=== PATIENT | male | born 1935 | race African-American/Black ===

== ENCOUNTER 2016-06-08 11:39 | Inpatient (IN) | payer MEDICARE, OTHER ==
[~2016-06-08] VITALS: Ht 185.4 cm; Wt 65.0 kg
[~2016-06-08 11:39] MED LIST: ACET325 PO; ACIDCAP2 PO; AUGM875T PO; BISA10R PR; BRIM.2%O LEFT EYE; CIPR500T4 PO; FLEEENE3 PR; FURO1TAB93 PO; LATA.005%O LEFT EYE; LISI-363 PO; MILKSUS5 PO; MIRA33502 PO; POTA10TA2 PO; RIVA20 PO; SENN8.6T8 PO; ST J81CH PO; Z.0.OXYGEN INH
[2016-06-08 11:43] VITALS: BP 110/73; PULSE 72; RESP 24; TEMP 97.5; O2SAT 98
[2016-06-08 11:56] VITALS: BP 132/83; PULSE 80; RESP 16; TEMP 98.1; O2SAT 92
[2016-06-08] MEDS ORDERED: XARE20TA PO (12:05)
[2016-06-08] MEDS ORDERED: FURO40TA PO (12:05)
[2016-06-08] MEDS ORDERED: SENN1TAB PO (12:05)
[2016-06-08] MEDS ORDERED: CIPR500T2 PO (12:05)
[2016-06-08] MEDS ORDERED: QUET1TAB7 PO (12:05)
[2016-06-08] MEDS ORDERED: SODIUM CHLOR 0.9% 1000 ML INJ 1,000 ML IV SCH (12:06)
[2016-06-08] MEDS ORDERED: SODIUM CHLORIDE 0.9% FLUSH 5 ML FLUSH IVF PRN (12:15)
[2016-06-08] MEDS ORDERED: ONDANSETRON HCL 4 MG/2 ML VIAL IVP ONE (12:15)
[2016-06-08 12:21] VITALS: O2SAT 92
--- NOTE | 2016-06-08 12:22 | PD ---
HPI Chief Complaint: GI Complaint Time Seen by Provider: 12:00 Travel History International Travel<30 days: No Contact w/Intl Traveler<30days: No Traveled to known affect area: No History of Present Illness HPI Patient is a 80-year-old male who presents to emergency room with complaints of abdominal pain. Patient reports that he has not had a normal bowel movement in a few weeks, reports that his abdomen has become increasingly distended to the point where he is having a hard time eating. Reports that he has had decreased oral intake over the past couple days as his abdomen is distended and it is very difficult for him to eat. Patient denies nausea or vomiting. Patient denies abdominal pain. Patient with no history of abdominal surgeries in the past, no history of small bowel distractions in the past. Patient did have an outpatient xray of his abdomen which showed possible SBO. Patient here for further evaluation. PFSH Past Medical History Hx Anticoagulant Therapy: Yes (XARELTO ) Arthritis: Yes (KNEE) Asthma: Yes Blood Disorders: No Cancer: No Cardiovascular Problems: No Diminished Hearing: No Endocrine: No Gastrointestinal Disorders: No Glaucoma: Yes Genitourinary: Yes (JEFFERY CATHETER ON PLACE FROM [facility] ) Hypertension: Yes Immune Disorder: No Neurologic: No Psychiatric: No Reproductive: No Immunizations Current: Yes Influenza Vaccination: No Past Surgical History Surgical History: No Previous Surgery Pacemaker: No Other Surgery: No Family History Family History: Negative Social History Alcohol Use: No Tobacco Use: No Substance Use: No Allergies-Medications (Allergen,Severity, Reaction): Coded Allergies: Sulfa (Verified Allergy, Mild, Rash, 06/08/16) Reported Meds & Prescriptions Reported Meds & Active Scripts Active Reported Furosemide 40 Mg Tab 40 Mg PO DAILY Quetiapine (Quetiapine Fumarate) 25 Mg Tab 25 Mg PO DAILY Ciprofloxacin (Ciprofloxacin HCl) 500 Mg Tab 500 Mg PO BID Senna-Plus (Sennosides-Docusate Sodium) 8.6-50 Mg Tab 1 Tab PO DAILY Xarelto (Rivaroxaban) 20 Mg Tab 20 Mg PO DAILY Review of Systems General / Constitutional: No: Fever Eyes: No: Visual changes HENT: No: Headaches Cardiovascular: No: Chest Pain or Discomfort Respiratory: No: Shortness of Breath Gastrointestinal: Positive: Other (abdominal distention), No: Nausea, Vomiting , Abdominal Pain Genitourinary: No: Dysuria Musculoskeletal: No: Pain Skin: No Rash Neurologic: No: Weakness Psychiatric: No: Depression Endocrine: No: Polydipsia Hematologic/Lymphatic: No: Easy Bruising Physical Exam Narrative GENERAL: No acute distress, SKIN: Warm and dry. HEAD: Atraumatic. Normocephalic. EYES: Pupils equal and round. No scleral icterus. No injection or drainage. ENT: No nasal bleeding or discharge. Mucous membranes pink and moist. NECK: Trachea midline. No JVD. CARDIOVASCULAR: Regular rate and rhythm. No murmur appreciated. RESPIRATORY: No accessory muscle use. Clear to auscultation. Breath sounds equal bilaterally. GASTROINTESTINAL: Abdomen is distended, nontender, positive bowel sounds which are hyperactive MUSCULOSKELETAL: No obvious deformities. No clubbing. No cyanosis. No edema. NEUROLOGICAL: Awake and alert. No obvious cranial nerve deficits. Motor grossly within normal limits. Normal speech. PSYCHIATRIC: Appropriate mood and affect; insight and judgment normal. Data Data Last Documented VS Vital Signs Date Time Temp Pulse Resp B/P Pulse Ox O2 Delivery O2 Flow Rate FiO2 06/08/16 14:26 81 16 149/81 95 Nasal Cannula 2 06/08/16 11:56 98.1 Orders Complete Blood Count With Diff (06/08/16 12:06) Comprehensive Metabolic Panel (06/08/16 12:06) Prothrombin Time / Inr (Pt) (06/08/16 12:06) Act Partial Throm Time (Ptt) (06/08/16 12:06) Urinalysis - C+S If Indicated (06/08/16 12:06) Ct Abd/Pel W Iv Contrast(Rout) (06/08/16 12:06) Iv Access Insert/Monitor (06/08/16 12:06) Ecg Monitoring (06/08/16 12:06) Oximetry (06/08/16 12:06) Ondansetron Inj (Zofran Inj) (06/08/16 12:15) Sodium Chlor 0.9% 1000 Ml Inj (Ns 1000 M (06/08/16 12:06) Sodium Chloride 0.9% Flush (Ns Flush) (06/08/16 12:15) Chest, Single Ap (06/08/16 12:06) Oral Contrast - Adult (06/08/16 12:11) Diatrizoate Liq ( Gastroview Liq) (06/08/16 12:24) Urine Culture (06/08/16 13:12) Iohexol 350 Inj (Omnipaque 350 Inj) (06/08/16 14:11) Ceftriaxone Inj (Rocephin Inj) (06/08/16 15:45) Consult General Surgery (06/08/16 ) Consult Gastroenterology (06/08/16 ) Admit Order (Ed Use Only) (06/08/16 16:08) Labs Laboratory Tests Test 06/08/16 06/08/16 12:51 13:12 White Blood Count 14.7 TH/MM3 Red Blood Count 3.95 MIL/MM3 Hemoglobin 12.0 GM/DL Hematocrit 35.6 % Mean Corpuscular Volume 90.0 FL Mean Corpuscular Hemoglobin 30.4 PG Mean Corpuscular Hemoglobin 33.8 % Concent Red Cell Distribution Width 14.1 % Platelet Count 217 TH/MM3 Mean Platelet Volume 8.6 FL Neutrophils (%) (Auto) 82.9 % Lymphocytes (%) (Auto) 8.4 % Monocytes (%) (Auto) 8.1 % Eosinophils (%) (Auto) 0.3 % Basophils (%) (Auto) 0.3 % Neutrophils # (Auto) 12.2 TH/MM3 Lymphocytes # (Auto) 1.2 TH/MM3 Monocytes # (Auto) 1.2 TH/MM3 Eosinophils # (Auto) 0.0 TH/MM3 Basophils # (Auto) 0.0 TH/MM3 CBC Comment DIFF FINAL Differential Comment Prothrombin Time 13.6 SEC Prothromb Time International 1.2 RATIO Ratio Activated Partial 34.1 SEC Thromboplast Time Sodium Level 145 MEQ/L Potassium Level 2.6 MEQ/L Chloride Level 108 MEQ/L Carbon Dioxide Level 28.0 MEQ/L Anion Gap 9 MEQ/L Blood Urea Nitrogen 28 MG/DL Creatinine 1.22 MG/DL Estimat Glomerular Filtration 70 ML/MIN Rate Random Glucose 107 MG/DL Calcium Level 9.1 MG/DL Total Bilirubin 1.2 MG/DL Aspartate Amino Transf 19 U/L (AST/SGOT) Alanine Aminotransferase 17 U/L (ALT/SGPT) Alkaline Phosphatase 68 U/L Total Protein 7.1 GM/DL Albumin 3.1 GM/DL Urine Color YELLOW Urine Turbidity HAZY Urine pH 5.5 Urine Specific [place] 1.015 Urine Protein 30 mg/dL Urine Glucose (UA) NEG mg/dL Urine Ketones NEG mg/dL Urine Occult Blood SMALL Urine Nitrite NEG Urine Bilirubin NEG Urine Urobilinogen LESS THAN 2.0 MG/DL Urine Leukocyte Esterase LARGE Urine RBC 4 /hpf Urine WBC 87 /hpf Urine WBC Clumps RARE Urine Squamous Epithelial <1 /hpf Cells Urine Bacteria MOD /hpf Urine Hyaline Casts 60 /lpf Urine Mucus FEW /lpf Microscopic Urinalysis Comment CULTURE INDICATED MDM Medical Decision Making Medical Screen Exam Complete: Yes Emergency Medical Condition: Yes Interpretation(s) Vital Signs Date Time Temp Pulse Resp B/P Pulse Ox O2 Delivery O2 Flow Rate FiO2 06/08/16 11:43 97.5 72 24 110/73 98 Room Air CBC & BMP Diagram 06/08/16 12:51 Last Impressions Chest X-Ray 06/08/16 1206 Signed Impressions: Service Date/Time: Wednesday, June 08, 2016 12:18 - CONCLUSION: Abnormal abdomen appearance. 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 No evidence of perforation. The referring physicians will be contacted concerning this abnormality. Kiera Nicolas MD Differential Diagnosis Small bowel obstruction, liver failure with ascites, abdominal mass, pneumoperitoneum, hemoperitoneum, constipation, volvulus Narrative Course Patient is a 80-year-old male who presents to emergency room with complaints of abdominal distention. Patient reports that he has not had a good bowel movement for the past few weeks and has had increased oral intake over the past 3-4 days. Patient with no pain at this time, patient here for evaluation of abdominal distention. IV was placed and patient, CBC, BMP, CT abdomen and pelvis ordered for evaluation of possible obstruction. Oral contrast orders as well for further evaluation of symptoms. Ct reviewed, pt with large bowel obstruction sigmoid volvulus. Findings reviewed with pt and his Please note: pt currently on cipro for UTI and xarellto for dvt/pe tx Case reviewed with Dr. Altamirano with General Surgery will see pt in consult Case reviewed with Dr Diane with GI will see pt in consult Case reviewed with Dr John who accepts pt to service Critical Care Narrative Aggregate critical care time was 45 minutes. Time to perform other separately billable procedures was not included in the critical care time. My time did not include minutes spent treating any other patients simultaneously or on activities that did not directly contribute to the patient's treatment. The services I provided to this patient were to treat and/or prevent clinically significant deterioration that could result in: , decompensation, deterioration I provided critical care services requiring my management, as noted below: Chart data review, documentation time, medication orders and management, vital sign assessments/reviewing monitor data, ordering and reviewing lab tests, ordering and interpreting/reviewing x-rays and diagnostic studies, care of the patient and discussion of the patient with the admitting physicians. Diagnosis Primary Impression: Sigmoid volvulus Additional Impressions: UTI (urinary tract infection) Qualified Code: N30.00 - Acute cystitis without hematuria Hypokalemia Admitting Information Admitting Physician Requests: Manuela Dickerson DO Jun 08, 2016 12:22
[2016-06-08] MEDS ORDERED: DIATRIZOATE MEGLUM/DIATRIZOATE SOD 9 ML CUP ONE (12:24)
--- NOTE | 2016-06-08 12:47 | RADRPT ---
EXAM DATE/TIME: 06/08/2016 12:18 [facility] COMPARISON: CHEST SINGLE AP, April 28, 2015, 4:32. INDICATIONS : Evaluate for free air. MEDICAL HISTORY : Hypertension. SURGICAL HISTORY : None. ENCOUNTER: Initial ACUITY: 1 day PAIN SCORE: 0/10 LOCATION: chest FINDINGS: There are air-filled dilated loops of bowel throughout the visualized upper abdomen. In the right upp er quadrant in particular, is difficult to determine if there is additionally pneumoperitoneum, howev er the appearance is certainly worrisome. I note that a CT abdomen is pending. The right diaphragm is substantially elevated and more so than previously. CONCLUSION: Abnormal abdomen appearance. CT abdomen recommended Eric Burgos MD on June 08, 2016 at 12:42 Board Certified Radiologist. This report was verified electronically.
[2016-06-08 13:09] LABS: AUTOMATED NEUTROPHIL # 12.2 TH/MM3 (1.8-7.7); BASOPHIL % 0.3 % (0.0-2.0); EOSINOPHIL % 0.3 % (0.0-4.0); HEMATOCRIT 35.6 % (39.0-51.0); HEMO FLAGS DIFF FINAL; LYMPH % 8.4 % (9.0-44.0); LYMPHOCYTE # 1.2 TH/MM3 (1.0-4.8); MEAN CORPUSCULAR HEMOGLOBIN 30.4 PG (27.0-34.0); MEAN CORPUSCULAR HGB CONC 33.8 % (32.0-36.0); MONO % 8.1 % (0.0-8.0); NEUT % 82.9 % (16.0-70.0); PLATELET COUNT 217 TH/MM3 (150-450); RED BLOOD COUNT 3.95 MIL/MM3 (4.50-5.90); RED CELL DISTRIBUTION WIDTH 14.1 % (11.6-17.2); WHITE BLOOD COUNT 14.7 TH/MM3 (4.0-11.0)
[2016-06-08 13:17] LABS: APTT (PATIENT) 34.1 SEC (24.3-30.1); INTERNATIONAL NORMALIZED RATIO 1.2 RATIO; PROTHROMBIN TIME - PATIENT 13.6 SEC (9.8-11.6)
[2016-06-08 13:30] LABS: ALKALINE PHOSPHATASE 68 U/L (45-117); ALT (GPT) 17 U/L (12-78); ANION GAP 9 MEQ/L (5-15); AST (GOT) 19 U/L (15-37); BLOOD UREA NITROGEN 28 MG/DL (7-18); CHLORIDE 108 MEQ/L (98-107); GLOMERULAR FILTRATION RATE 70 ML/MIN (>89); SODIUM (NA) 145 MEQ/L (136-145); TOTAL BILIRUBIN ADULT 1.2 MG/DL (0.2-1.0)
[2016-06-08 13:34] LABS: POTASSIUM 2.6 MEQ/L (3.5-5.1)
[2016-06-08 14:00] LABS: BACTERIA, URINE MOD /hpf; BLOOD, URINE SMALL (NEG); COMMENT (UR) CULTURE INDICATED; CULTURE IF INDICATED CULTURE INDICATED; GLUCOSE,URINE NEG (NEG); HYALINE CAST, URINE 60 /lpf (RARE); KETONE, URINE NEG (NEG); MUCUS URINE FEW /lpf (OCC); NITRITE,URINE NEG (NEG); PH, URINE 5.5 (5.0-8.5); SQUAMOUS EPITHELIAL CELL URINE <1 /hpf (0-5); URINE COLOR YELLOW (YELLW/STRAW)
[2016-06-08] MEDS ORDERED: IOHEXOL 350 MG/ML 10 ML VIAL (for RAD DIAG) IV ONE (14:11)
[2016-06-08 14:26] VITALS: BP 149/81; PULSE 81; RESP 16; O2SAT 95
--- NOTE | 2016-06-08 14:54 | RADRPT ---
EXAM DATE/TIME: 06/08/2016 13:58 [facility] COMPARISON: No previous studies available for comparison. INDICATIONS : Abdominal pain along with distention and constipation. IV CONTRAST: 98 cc Omnipaque 350 (iohexol) IV ORAL CONTRAST: Prescribed oral contrast ingested. RADIATION DOSE: 9.12 CTDIvol (mGy) MEDICAL HISTORY : Hypertension. SURGICAL HISTORY : None. ENCOUNTER: Initial ACUITY: 2 days PAIN SCALE: 7/10 LOCATION: abdomen TECHNIQUE: Volumetric scanning of the abdomen and pelvis was performed. Using automated exposure control and ad justment of the mA and/or kV according to patient size, radiation dose was kept as low as reasonably achievable to obtain optimal diagnostic quality images. FINDINGS: There is significant air dilation of the colon. The rectum and distal sigmoid colon are decompre ssed. There is a transition point identified within the right lower pelvis where the decompressed sig moid rapidly dilates to approximately 14 cm in transverse diameter. Fluid is seen within the deep por tions of the air distended colon. There is no evidence of free air to suggest perforation. There is a ir seen decompressing into loops of small bowel. The significantly distended colon causes mass effect upon the adjacent right hemithorax with com pressive atelectasis of the right lung base. The aerated lung is otherwise unremarkable. Heart size i s normal. The descending colon causes significant mass effect upon the adjacent liver and gallbladder. The kidneys, pancreas and spleen are unremarkable. Basilar structures are unremarkable. Osseous structur es demonstrate senescent changes. CONCLUSION: Large bowel obstruction caused by a sigmoid volvulus. No evidence of perforation. The referring physicians will be contacted concerning this abnormality. Kiera Nicolas MD on June 08, 2016 at 14:46 Board Certified Radiologist. This report was verified electronically.
[2016-06-08] MEDS ORDERED: cefTRIAXone INJ 1,000 MG in SODIUM CHLORIDE 0.9% INJ 100 ML IV ONE (15:45)
[2016-06-08] MEDS ORDERED: ONDANSETRON HCL 4 MG/2 ML VIAL IV PUSH PRN (16:15)
--- NOTE | 2016-06-08 16:23 | PD.CONS ---
HPI History of Present Illness This is a 80 year old male patient who was brought to the ER for worsening abdominal distention. The patient is a poor historian and much of the history has been obtained from his . She reports that he has not had a good bowel movement in 3-4 weeks. He takes Senna at home, but was not having any results with this. . He was passing some liquid stool, but last did this about 3 days ago. She reports that his abdomen distention has progressively been getting worse and therefore she brought him to the ER. Over the past few weeks, he has had decreased appetite, but has not had any nausea/vomiting or abdominal pain. He has had significant weight loss over the past year or so. He had a colonoscopy many years ago. He takes Xarelto for a hx of bilateral pulmonary embolism/RLE DVT 2014. She cannot recall if he took his Xarelto last night. ( Amie Flores) PFSH Past Medical History Recent UTI- on abx since 05/25-states per 10 days, but has 3 days left in bottle. DVT,Bilateral PE 2014 HTN MS 2014 Glaucoma Past Surgical History Colonoscopy (Amie Flores) Coded Allergies: Sulfa (Verified Allergy, Mild, Rash, 06/08/16) Medications Allergies Coded Allergies Type Severity Reaction Last Updated Verified Sulfa Allergy Mild Rash 06/08/16 Yes Active Scripts Medications Dose Route/Sig Days Date Category Furosemide 40 Mg Tab 40 Mg PO DAILY 06/08/16 Reported Quetiapine (Quetiapine Fumarate) 25 Mg Tab 25 Mg PO DAILY 06/08/16 Reported Ciprofloxacin (Ciprofloxacin HCl) 500 Mg Tab 500 Mg PO BID 06/08/16 Reported Senna-Plus (Sennosides-Docusate Sodium) 8.6-50 Mg Tab 1 Tab PO DAILY 06/08/16 Reported Xarelto (Rivaroxaban) 20 Mg Tab 20 Mg PO DAILY 06/08/16 Reported Family History Noncontributory Social History No tobacco or etoh use. (Amie Flores) Review of Systems Constitutional: COMPLAINS OF: Fatigue, Weight loss, Change in appetite Respiratory: DENIES: Shortness of breath Gastrointestinal: COMPLAINS OF: Constipation, Anorexia, Swelling of Abdomen, DENIES: Abdominal pain, Black stools, Diarrhea (Very poor historian), Nausea, Vomiting Psychiatric: DENIES: Confusion (Amie Flores) GI Exam Vitals I&O Vital Signs Date Time Temp Pulse Resp B/P Pulse Ox O2 Delivery O2 Flow Rate FiO2 06/08/16 14:26 81 16 149/81 95 Nasal Cannula 2 06/08/16 12:21 92 Room Air 06/08/16 11:56 98.1 80 16 132/83 92 06/08/16 11:43 97.5 72 24 110/73 98 Room Air Imaging Last Impressions Chest X-Ray 06/08/16 1206 Signed Impressions: Service Date/Time: Wednesday, June 08, 2016 12:18 - CONCLUSION: Abnormal abdomen appearance. 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 No evidence of perforation. The referring physicians will be contacted concerning this abnormality. Kiera Nicolas MD Laboratory Test 06/08/16 06/08/16 12:51 13:12 White Blood Count 14.7 TH/MM3 Red Blood Count 3.95 MIL/MM3 Hemoglobin 12.0 GM/DL Hematocrit 35.6 % Mean Corpuscular Volume 90.0 FL Mean Corpuscular Hemoglobin 30.4 PG Mean Corpuscular Hemoglobin 33.8 % Concent Red Cell Distribution Width 14.1 % Platelet Count 217 TH/MM3 Mean Platelet Volume 8.6 FL Neutrophils (%) (Auto) 82.9 % Lymphocytes (%) (Auto) 8.4 % Monocytes (%) (Auto) 8.1 % Eosinophils (%) (Auto) 0.3 % Basophils (%) (Auto) 0.3 % Neutrophils # (Auto) 12.2 TH/MM3 Lymphocytes # (Auto) 1.2 TH/MM3 Monocytes # (Auto) 1.2 TH/MM3 Eosinophils # (Auto) 0.0 TH/MM3 Basophils # (Auto) 0.0 TH/MM3 CBC Comment DIFF FINAL Differential Comment Prothrombin Time 13.6 SEC Prothromb Time International 1.2 RATIO Ratio Activated Partial 34.1 SEC Thromboplast Time Sodium Level 145 MEQ/L Potassium Level 2.6 MEQ/L Chloride Level 108 MEQ/L Carbon Dioxide Level 28.0 MEQ/L Anion Gap 9 MEQ/L Blood Urea Nitrogen 28 MG/DL Creatinine 1.22 MG/DL Estimat Glomerular Filtration 70 ML/MIN Rate Random Glucose 107 MG/DL Calcium Level 9.1 MG/DL Total Bilirubin 1.2 MG/DL Aspartate Amino Transf 19 U/L (AST/SGOT) Alanine Aminotransferase 17 U/L (ALT/SGPT) Alkaline Phosphatase 68 U/L Total Protein 7.1 GM/DL Albumin 3.1 GM/DL Urine Color YELLOW Urine Turbidity HAZY Urine pH 5.5 Urine Specific [place] 1.015 Urine Protein 30 mg/dL Urine Glucose (UA) NEG mg/dL Urine Ketones NEG mg/dL Urine Occult Blood SMALL Urine Nitrite NEG Urine Bilirubin NEG Urine Urobilinogen LESS THAN 2.0 MG/DL Urine Leukocyte Esterase LARGE Urine RBC 4 /hpf Urine WBC 87 /hpf Urine WBC Clumps RARE Urine Squamous Epithelial <1 /hpf Cells Urine Bacteria MOD /hpf Urine Hyaline Casts 60 /lpf Urine Mucus FEW /lpf Microscopic Urinalysis Comment CULTURE INDICATED Date/Time Procedure Status Source Growth 06/08/16 13:12 Urine Culture Received Urine Clean Catch Pending Physical Examination GEN: Ill appearing NECK: Neck is supple, no JVD, no lymphadenopathy. CHEST: CTA CARDIAC: RRR ABDOMEN: Pt with significant distention, tympanic; nontender on exam. EXTREMITIES: BLE edema. SKIN: Normal; no rash; no jaundice. RIVER RAFTING GUIDE: Lethargic, poor historian (Amie Flores) Assessment and Plan Plan ASSESSMENT: - Bowel obstruction secondary to sigmoid volvulus. Pt is poor historian, states he has been constipated and has not had a real good bowel movement in 3-4 weeks, had some liquid stool three days ago. Presents to ER with worsening abdominal distention. No n/v No pain. Pt with severe tympanic abdominal distention. Abdomen/Pelvis CT ()-----> Large bowel obstruction caused by a sigmoid volvulus. No evidence of perforation. The referring physicians will be contacted concerning this abnormality. GS following. NPO. Will plan for emergent flexible sigmoidoscopy today. - Leukocytosis. WBC 14.7. - Hypokalemia. - Abnormal weight loss. Pt last colonoscopy many years ago per patient. 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 PLAN: - Plan for flexible sigmoidoscopy - Obtain consents - NPO - NGT to [facility] in am - IVF - Supportive care - Further recommendations to follow based on results of above - Pt seen and examined by Dr. Diane and myself and this note is written on his behalf (Amie Flores) Physician Comments Patient seen and examined Agree with above Continue current supportive care Monitor labs Flexible sigmoidoscopy With decompression and probable rectal tube placement ( Demian Diane MD) Amie Flores Jun 08, 2016 16:23 Demian Diane MD Jun 08, 2016 23:05
[2016-06-08] MEDS: NS + KCL 20 MEQ INJ 1,000 ML IV SCH ×2 (16:30→18:03)
[2016-06-08] MEDS ORDERED: POTASSIUM CHLOR 20 MEQ PREMIX 100 ML IV SCH (16:30)
[2016-06-08 16:31] VITALS: BP 130/81; PULSE 81; RESP 14; O2SAT 95
[2016-06-08] MEDS ORDERED: SODIUM CHLOR 0.9% 1000 ML INJ 1,000 ML IV ONE (17:00)
--- NOTE | 2016-06-08 17:00 | HHI.HP ---
[facility] Xiao Morillo MD Admission Diagnosis Sigmoid volvulus Diagnoses: Chief Complaint: Abdominal distention Travel History International Travel<30 Days: No Contact w/Intl Traveler <30 Da: No Traveled to Known Affected Are: No History of Present Illness This 80-year-old -[place] male patient seen with his in the room patient and are poor historians information gathered from patient as well as and prior computer chart. 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 It appears that patient has been followed by [facility]. Patient and would like to maintain DNR status while in the hospital. Patient's reports that abdominal distention has been steadily increasing over the past 4 weeks. Patient's last formed bowel movement was 3-4 weeks ago last liquid bowel movement was 3 days ago. Patient has stopped eating because he feels full and is unable to get the food down. Patient denies nausea, vomiting or pain. Patient also denies shortness of breath chest pain. Patient is generally weak which has been his baseline. Patient is unable to walk and has a lateral foot drop. Review of Systems Other All other systems reviewed and negative except as mentioned in history of present illness. Past Family Social History Past Medical History pulmonary embolism, DVT urinary retention glaucoma HTN Past Surgical History Colonoscopy, "a long time ago" Reported Medications Furosemide 40 Mg Tab 40 Mg PO DAILY Quetiapine (Quetiapine Fumarate) 25 Mg Tab 25 Mg PO DAILY Ciprofloxacin (Ciprofloxacin HCl) 500 Mg Tab 500 Mg PO BID Senna-Plus (Sennosides-Docusate Sodium) 8.6-50 Mg Tab 1 Tab PO DAILY Xarelto (Rivaroxaban) 20 Mg Tab 20 Mg PO DAILY Allergies: Coded Allergies: Sulfa (Verified Allergy, Mild, Rash, 06/08/16) Active Ordered Medications Current Medications Medications (Trade) Dose Ordered Sig/Ken Route Start Time Stop Time Status Last Admin (NS Flush) 2 ml UNSCH PRN IVF 06/08/16 12:15 Ondansetron HCl 4 mg 4 mg Q8HR PRN IV PUSH 06/08/16 16:15 Ceftriaxone Sodium 1000 mg/ Sodium Chloride 100 ml @ 200 mls/hr Q24H IV 06/09/16 16:00 Potassium Chloride/Sodium Chloride 1,000 ml @ 100 mls/hr Q10H IV 06/08/16 16:30 (KCl 20 Meq Premix Inj) 100 ml @ 50 mls/hr Q2H IV 06/08/16 16:30 06/08/16 20:29 06/08/16 16:35 Family History Denies current medical history of cancer Social History Denies EtOH use tobacco abuse or illicit drug use Physical Exam Vital Signs Vital Signs Date Time Temp Pulse Resp B/P Pulse Ox O2 Delivery O2 Flow Rate FiO2 06/08/16 16:31 81 14 130/81 95 Nasal Cannula 2 06/08/16 14:26 81 16 149/81 95 Nasal Cannula 2 06/08/16 12:21 92 Room Air 06/08/16 11:56 98.1 80 16 132/83 92 06/08/16 11:43 97.5 72 24 110/73 98 Room Air Physical Exam GENERAL: This is an frail elderly appearing 80-year-old gentleman with firm grossly distended abdomen HEAD: Atraumatic. Normocephalic. No temporal or scalp tenderness. EYES: Extraocular motions intact. No scleral icterus. No injection or drainage. ENT: Nose without bleeding, purulent drainage or septal hematoma. Throat without erythema, tonsillar hypertrophy or exudate. Uvula midline. Airway patent. NECK: Trachea midline. No JVD or lymphadenopathy. Supple, nontender, no meningeal signs. CARDIOVASCULAR: Regular rate and rhythm without murmurs, gallops, or rubs. RESPIRATORY: Clear to auscultation. Breath sounds equal bilaterally. No wheezes , rales, or rhonchi. GASTROINTESTINAL: Abdomen firm grossly distended with hyperactive bowel sounds MUSCULOSKELETAL: 1+ bilateral lower extremity pitting edema with foot drop. No calf tenderness. Negative Homans sign bilaterally. NEUROLOGICAL: Awake and alert.Motor and sensory grossly within normal limits. 3 out of 5 muscle strength in all muscle groups. Garbled speech. Laboratory Laboratory Tests Test 06/08/16 06/08/16 12:51 13:12 White Blood Count 14.7 Red Blood Count 3.95 Hemoglobin 12.0 Hematocrit 35.6 Mean Corpuscular Volume 90.0 Mean Corpuscular Hemoglobin 30.4 Mean Corpuscular Hemoglobin 33.8 Concent Red Cell Distribution Width 14.1 Platelet Count 217 Mean Platelet Volume 8.6 Neutrophils (%) (Auto) 82.9 Lymphocytes (%) (Auto) 8.4 Monocytes (%) (Auto) 8.1 Eosinophils (%) (Auto) 0.3 Basophils (%) (Auto) 0.3 Neutrophils # (Auto) 12.2 Lymphocytes # (Auto) 1.2 Monocytes # (Auto) 1.2 Eosinophils # (Auto) 0.0 Basophils # (Auto) 0.0 CBC Comment DIFF FINAL Differential Comment Prothrombin Time 13.6 Prothromb Time International 1.2 Ratio Activated Partial 34.1 Thromboplast Time Sodium Level 145 Potassium Level 2.6 Chloride Level 108 Carbon Dioxide Level 28.0 Anion Gap 9 Blood Urea Nitrogen 28 Creatinine 1.22 Estimat Glomerular Filtration 70 Rate Random Glucose 107 Calcium Level 9.1 Total Bilirubin 1.2 Aspartate Amino Transf 19 (AST/SGOT) Alanine Aminotransferase 17 (ALT/SGPT) Alkaline Phosphatase 68 Total Protein 7.1 Albumin 3.1 Urine Color YELLOW Urine Turbidity HAZY Urine pH 5.5 Urine Specific [place] 1.015 Urine Protein 30 Urine Glucose (UA) NEG Urine Ketones NEG Urine Occult Blood SMALL Urine Nitrite NEG Urine Bilirubin NEG Urine Urobilinogen LESS THAN 2.0 Urine Leukocyte Esterase LARGE Urine RBC 4 Urine WBC 87 Urine WBC Clumps RARE Urine Squamous Epithelial <1 Cells Urine Bacteria MOD Urine Hyaline Casts 60 Urine Mucus FEW Microscopic Urinalysis Comment CULTURE INDICATED Date/Time Procedure Status Source Growth 06/08/16 13:12 Urine Culture Received Urine Clean Catch Pending Result Diagram: 06/08/16 1251 06/08/16 1251 Imaging Last Impressions Chest X-Ray 06/08/16 1206 Signed Impressions: Service Date/Time: Wednesday, June 08, 2016 12:18 - CONCLUSION: Abnormal abdomen appearance. 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 No evidence of perforation. The referring physicians will be contacted concerning this abnormality. Kiera Nicolas MD Assessment and Plan Assessment and Plan This 80-year-old -[place] male patient with past medical history which includes pulmonary embolism, DVT for which he is on Xarelto last taken last night, urinary retention with Barros catheter for the past year last changed approximately 3 weeks ago and glaucoma with limited vision in the right eye and hypertension for which he is no longer on medication. Has bowel obstruction with sigmoid volvulus. Bowel obstruction with Sigmoid volvulus 1 L normal saline bolus followed by normal saline with 20 KCl at 150 cc/h CT abdomen and pelvis reviewed by myself as well as DrGuy the and we reveals large bowel obstruction caused by sigmoid volvulus no evidence of perforation Gastroenterology consulted and plan flexible sigmoidoscopy today Surgery Dr. Cole also evaluating patient and available for surgical needs Hyperkalemia potassium 2.6 will check magnesium Give 40 mEq potassium IV +20 mEq potassium and UTI patient has been on Cipro at home has failed outpatient treatment will start Rocephin Change Barros catheter Pulmonary embolism and DVT history Xarelto on hold at this time Hypertension continue to monitor patient Check CBC and BMP in a.m. CODE STATUS patient is a DNR Discussed case with ER provider, Dr. Douglas Gamboa patient and Written by Monika Palomino, acting as scribe for Dr. Mcguire on 06/08/16 at 16:58. patient was seen and examined today. 80 y/o male -ill looking- presented to ER with abdominal distention and constipation. found to have bowel obstruction. GI and surgery consulted. DNR status per my discussion with the . rest of assessment and plan as noted above. Discussed Condition With ER physician, Dr Douglas Richmond. the patient and his at the bedside. Physician Certification 2 Midnight Certification Type: Admission for Inpatient Services Order for Inpatient Services The services are ordered in accordance with Medicare regulations or non- Medicare payer requirements, as applicable. In the case of services not specified as inpatient-only, they are appropriately provided as inpatient services in accordance with the 2-midnight benchmark. Estimated LOS (days): 5 days is the estimated time the patient will need to remain in the hospital, assuming treatment plan goals are met and no additional complications. Post-Hospital Plan: Not yet determined Monika Palomino Jun 08, 2016 17:00 Anuj Mcguire MD Jun 08, 2016 17:07
[2016-06-08] MEDS ORDERED: KETAMINE HCL 500 MG/5 ML VIAL ONE (17:13)
[2016-06-08] MEDS ORDERED: MIDAZOLAM HCL 2 MG/2 ML VIAL ONE (17:50)
[2016-06-08] MEDS: cefTRIAXone INJ 1,000 MG in SODIUM CHLORIDE 0.9% INJ 100 ML IV SCH (18:03)
--- NOTE | 2016-06-08 18:16 | MB ---
cc: SHERIN CHRISTIANSON MD DATE OF CONSULTATION: 06/08/2016. REASON FOR CONSULTATION: Sigmoid volvulus, large bowel obstruction, emaciation. HISTORY OF PRESENT ILLNESS: This 79-year-old male presented to the emergency room with several days of severe abdominal distention and no bowel movements. The patient did not have any nausea or vomiting. Interestingly enough, he is not very painful but initially presented because of the massive distention. The patient underwent a battery of studies and CT scan confirms the diagnosis of sigmoid volvulus; hence, the consultation. PAST MEDICAL HISTORY: 1. Recent pulmonary embolism with cardiac arrest. The patient was placed on Xarelto. The patient spent part of April last year in the intensive care unit at which point he was treated for cardiac arrest, bradyarrhythmias and had a pacemaker placed. 2. Self-catheterization. 3. Cardiac arrest. 4. Pulmonary embolism. PAST SURGICAL HISTORY: Basically that of pacemaker placement. MEDICATIONS: Medications are multiple and include Xarelto. SOCIAL HISTORY: The patient does not smoke or drink. REVIEW OF SYSTEMS: The review of systems reveals significant weight loss in the last six months or so. According to his , the patient has lost at least 30 pounds. PHYSICAL EXAMINATION: GENERAL: The physical examination reveals a 79-year-old gentleman in moderate distress due to abdominal distention. HEAD, EYES, EARS, NOSE, THROAT: Normocephalic. No trauma to the head. Pupils equal and reactive. Extraocular muscles intact. NECK: The neck is thin. Bilateral carotid pulses. No bruits. No lymphadenopathy. No masses in the neck. CHEST: Bilateral breath sounds decreased over both lung gibson. The patient has atrophy of the chest wall musculature consistent with pulmonary cachexia and recent weight loss. ABDOMEN: The abdomen is massively distended, tympanic in all four quadrants, no rebound or guarding is noted. Diffusely mildly tender. This is clearly consistent with a large bowel obstruction and massive distention of the large bowel noted on radiologic studies. GROINS: Normal. The patient does not have an incarcerated hernia. RECTAL: A rectal exam is not done and will be done by the social media campaign manager. EXTREMITIES: The patient has atrophy of all four extremities. The musculature is diminished and weak. The patient has proximal and distal pulses without signs of acute vascular deficit. BACK: The back is normal. IMPRESSION AND RECOMMENDATIONS: I have reviewed laboratory and diagnostic procedures. 1. This patient has an acute sigmoid volvulus. The appropriate therapy for acute sigmoid volvulus is detorsion with a sigmoidoscope with decompression and placement of a rectal tube then cleaning out the bowel and a full colonoscopy in the next few days. If this is not successful, then the patient should have immediate urgent surgery. The latter ones carries a high mortality so surgery on an emergent basis for a sigmoid volvulus certainly has to be avoided and the preferred therapy is medical and decompression. In the best case scenario, this patient will be decompressed, will have a full colonoscopy and then based on the findings, we can tailor further therapy. Considering this situation, the preferred way to manage it is to do sigmoid elective resection; however in the long-term after workup, the patient may garment turner not to be candidate for an open surgery as it is. 2. This gentleman has lost a significant amount of weight in the last six months and has been a visitor in this hospital in the intensive care unit for bradyarrhythmias, sick sinus syndrome, had a cardiac arrest and was treated with pacemaker placement. This patient has severe COPD and his medical history is not quite clear. He is a very poor surgical candidate so every effort should be made to fix this medically for if this patient does require surgery especially on an emergent basis, this will be associated with a huge mortality, probably in the range of 30% to 40%. I thank you much for the referral. I will continue to follow the patient. CRITICAL CARE TIME: Forty (40) minutes. Sherin GARCIA/NASEEM /4:41 PM /6:02 PM
[2016-06-08 20:00] VITALS: BP 129/70; PULSE 56; RESP 18; TEMP 97.6; O2SAT 100
--- NOTE | 2016-06-08 23:19 | PD.PROCEDR ---
GI Procedure REFERRING PHYSICIAN Dr. Altamirano PROCEDURE PERFORMED Flexible sigmoidoscopy with decompression and rectal tube placement and fixation with a clip INDICATION FOR PROCEDURE Abdominal distention with sigmoid volvulus PROCEDURE: The procedure, risks and benefits were discussed with Mr. Freire and informed consent was obtained. Anesthesia sedated him with Diprivan. He was placed in the left lateral decubitus position. Flexible Sigmoidoscopy: The Pentax videoscope was introduced through the rectum and advanced to the sigmoid. Retroflexion was performed in the rectum. Colonic prep was fair FINDINGS: The scope was advanced to about 60 cm from the anal verge and around 25-30 cm the colon appeared to be significantly dilated it was suctioned and it was noted that there was an erythemic friable patch of mucosa suggestive of an ischemic event due to distention I was able to suction the evaluation of the mucosa was limited but mostly unremarkable except for that 1 patch using clip I was able to fix a rectal tube to about the descending colon and the procedure was thereafter terminated ESTIMATED BLOOD LOSS: None SPECIMENS REMOVED: None COMPLICATIONS: None IMPRESSION: Abdominal distention from a sigmoid volvulus Ischemic colitis PLAN: Supportive care Further plans as per general surgery Demian Diane MD Jun 08, 2016 23:19
[2016-06-09] VITALS: BP 120/67; PULSE 53; RESP 18; TEMP 97.3; O2SAT 100
[2016-06-09] MEDS: NS + KCL 20 MEQ INJ 1,000 ML IV SCH ×3 (00:32→16:14)
--- NOTE | 2016-06-09 06:42 | RADRPT ---
EXAM DATE/TIME: 06/09/2016 05:56 [place] COMPARISON: CT ABDOMEN & PELVIS W CONTRAST, June 08, 2016, 13:58. INDICATIONS : Distention. MEDICAL HISTORY : Hypertension. SURGICAL HISTORY : None. ENCOUNTER: Subsequent ACUITY: 2 days PAIN SCORE: Non-responsive. LOCATION: abdomen, all quadrants. FINDINGS: A rectal tube has been placed and there is decreasing colonic distention when compared with the prior exam. No organomegaly is evident. No free air is identified. CONCLUSION: 1. Comparison with the prior study there is decreasing colonic distention. Followup examination is re commended if clinically indicated. Eb Vargas MD on June 09, 2016 at 6:38 Board Certified Radiologist. This report was verified electronically.
[2016-06-09 08:00] VITALS: BP 135/64; PULSE 54; RESP 17; TEMP 96.9; O2SAT 94
--- NOTE | 2016-06-09 11:05 | HHI.PR ---
Subjective Remarks looks more comfortable today. abdominal pain and distention better. no nausea or vomiting. Objective Vitals Vital Signs Date Time Temp Pulse Resp B/P Pulse Ox O2 Delivery O2 Flow Rate FiO2 06/09/16 08:00 96.9 54 17 135/64 94 06/09/16 00:00 97.3 53 18 120/67 100 06/08/16 20:00 97.6 56 18 129/70 100 06/08/16 18:15 65 14 103/58 100 Nasal Cannula 2 06/08/16 18:00 69 14 107/65 100 Nasal Cannula 2 06/08/16 17:45 79 14 117/61 97 Nasal Cannula 2 06/08/16 17:43 98.1 82 14 121/69 99 Nasal Cannula 2 06/08/16 16:31 81 14 130/81 95 Nasal Cannula 2 06/08/16 14:26 81 16 149/81 95 Nasal Cannula 2 06/08/16 12:21 92 Room Air 06/08/16 11:56 98.1 80 16 132/83 92 06/08/16 11:43 97.5 72 24 110/73 98 Room Air I/O 06/08/16 06/08/16 06/08/16 06/09/16 06/09/16 06/09/16 07:00 15:00 23:00 07:00 15:00 23:00 Intake Total 681 ml 1281 ml 0 ml Output Total 475 ml 600 ml Balance 206 ml 681 ml 0 ml Intake Oral 0 ml 0 ml 0 ml IV Total 481 ml 1281 ml Other 200 ml Output Urine Total 475 ml 600 ml Estimated Blood Loss 0 ml Other 0 ml # Bowel Movements 1 2 Result Diagram: 06/08/16 1251 06/08/16 1251 Imaging Last Impressions Abdomen X-Ray 06/09/16 0600 Signed Impressions: Service Date/Time: Thursday, June 09, 2016 05:56 - CONCLUSION: 1. Comparison with the prior study there is decreasing colonic distention. Followup examination is recommended if clinically indicated. Eb Vargas MD Chest X-Ray 06/08/16 1206 Signed Impressions: Service Date/Time: Wednesday, June 08, 2016 12:18 - CONCLUSION: Abnormal abdomen appearance. 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 No evidence of perforation. The referring physicians will be contacted concerning this abnormality. Kiera Nicolas MD Objective Remarks GENERAL: This is a well-nourished, well-developed patient, in no apparent distress. CARDIOVASCULAR: Regular rate and regular rhythm without murmurs, gallops, or rubs. RESPIRATORY: Clear to auscultation. Breath sounds equal bilaterally. No wheezes , rales, or rhonchi. GASTROINTESTINAL: Abdomen soft, non-tender, distention has much improved. MUSCULOSKELETAL: Extremities without clubbing, cyanosis, or edema. NEURO: awake and alert Procedures colonoscopy Medications and IVs Current Medications Ondansetron HCl 4 mg 4 mg ONCE ONCE IVP Last administered on 06/08/16 12:29; Start 06/08/16 at 12:15; Stop 06/08/16 at 12:16; Status DC Sodium Chloride (NS 1000 ml Inj) 1,000 ml @ 1,000 mls/hr Q1H IV Last administered on 06/08/16 12:29; Start 06/08/16 at 12:06; Stop 06/08/16 at 13:05 ; Status DC IV Flush (NS Flush) 2 ml UNSCH PRN IVF FLUSH AFTER USING IV ACCESS; Start 06/08 at 12:15 Diatrizoate Meglum/ Diatrizoate Sod ( Gastroview Liq) 18 ml STK-MED ONCE .ROUTE Last administered on 06/08/16 12:29; Start 06/08/16 at 12:24; Stop at 12:25; Status DC Iohexol 98 ml 98 ml STK-MED ONCE IV Last administered on 06/08/16 14:11; Start 06/08/16 at 14:11; Stop 06/08/16 at 14:12; Status DC Ceftriaxone Sodium/Sodium Chloride (Rocephin Inj/NS Inj) 100 ml @ 200 mls/hr ONCE ONCE IV Last administered on 06/08/16 16:34; Start 06/08/16 at 15:45; Stop 06/08/16 at 16:14; Status DC Ondansetron HCl 4 mg 4 mg Q8HR PRN IV PUSH NAUSEA; Start 06/08/16 at 16:15 Ceftriaxone Sodium 1000 mg/ Sodium Chloride 100 ml @ 200 mls/hr Q24H IV Last administered on 06/08/16 18:03; Start 06/09/16 at 16:00 Potassium Chloride/Sodium Chloride 1,000 ml @ 150 mls/hr Q6H40M IV Last administered on 06/09/16 07:23; Start 06/08/16 at 16:30 Potassium Chloride 100 ml @ 50 mls/hr Q2H IV Last administered on 06/08/16 16 :35; Start 06/08/16 at 16:30; Stop 06/08/16 at 20:29; Status DC Sodium Chloride (NS 1000 ml Inj) 1,000 ml @ 999 mls/hr BOLUS ONCE IV ; Start 06/08/16 at 17:00; Stop 06/08/16 at 18:00; Status DC Ketamine HCl (Ketalar Inj) 500 mg STK-MED ONCE .ROUTE ; Start 06/08/16 at 17:13 ; Stop 06/08/16 at 17:14; Status DC Midazolam HCl (Versed Inj) 2 mg STK-MED ONCE .ROUTE ; Start 06/08/16 at 17:50; Stop 06/08/16 at 17:51; Status DC A/P Assessment and Plan A/P Bowel obstruction with Sigmoid volvulus s/p colonoscopy with ischemic colitis NPO for now and continue IV fluid continue IV Abx and pain control GI and surgery following. Hypokalemia at presentation replaced- will monitor UTI patient has been on Cipro at home has failed outpatient treatment continue Rocephin Pulmonary embolism and DVT history Xarelto on hold at this time - will resume when ok with GI and surgery Hypertension continue to monitor patient DVT prophylaxis with SCD's Anuj Mcguire MD Jun 09, 2016 11:05
[2016-06-09 11:33] LABS: AUTOMATED NEUTROPHIL # 7.6 TH/MM3 (1.8-7.7); BASOPHIL % 0.3 % (0.0-2.0); EOSINOPHIL # 0.2 TH/MM3 (0-0.4); EOSINOPHIL % 1.7 % (0.0-4.0); HEMATOCRIT 37.7 % (39.0-51.0); HEMO FLAGS DIFF FINAL; LYMPH % 13.2 % (9.0-44.0); LYMPHOCYTE # 1.3 TH/MM3 (1.0-4.8); MEAN CELL VOLUME 91.9 FL (80.0-100.0); MEAN CORPUSCULAR HEMOGLOBIN 30.6 PG (27.0-34.0); MEAN CORPUSCULAR HGB CONC 33.3 % (32.0-36.0); MONO % 6.1 % (0.0-8.0); NEUT % 78.7 % (16.0-70.0); PLATELET COUNT 216 TH/MM3 (150-450); RED CELL DISTRIBUTION WIDTH 14.5 % (11.6-17.2); WHITE BLOOD COUNT 9.6 TH/MM3 (4.0-11.0)
[2016-06-09 11:55] LABS: BICARBONATE 30.7 MEQ/L (21.0-32.0); POTASSIUM 3.1 MEQ/L (3.5-5.1)
[2016-06-09 12:00] VITALS: BP 133/70; PULSE 60; RESP 15; TEMP 96.9; O2SAT 95
[2016-06-09] MEDS: metroNIDAZOLE 500 MG INJ 100 ML IV SCH ×2 (12:35→20:42)
[2016-06-09] MEDS ORDERED: POTASSIUM CHLOR 20 MEQ PREMIX 100 ML IV ONE (13:15)
[2016-06-09 16:00] VITALS: BP 115/70; PULSE 60; RESP 16; TEMP 96.9; O2SAT 94
--- NOTE | 2016-06-09 16:58 | PD.CAR.PN ---
CVT Progress Note Subjective/Hospital Course: 80-year-old malnourished gentleman underwent yesterday successful detorsion of the sigmoid colon for volvulus. Abdomen is now soft with few bowel sounds and completely decompressed I've discussed this with Dr. 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 Will tailor therapy based on patient's progress Objective: Vital Signs Date Time Temp Pulse Resp B/P Pulse Ox O2 Delivery O2 Flow Rate FiO2 06/09/16 12:00 96.9 60 15 95 06/09/16 12:00 96.9 60 15 133/70 95 06/09/16 08:00 96.9 54 17 135/64 94 06/09/16 00:00 97.3 53 18 120/67 100 06/08/16 20:00 97.6 56 18 129/70 100 06/08/16 18:15 65 14 103/58 100 Nasal Cannula 2 06/08/16 18:00 69 14 107/65 100 Nasal Cannula 2 06/08/16 17:45 79 14 117/61 97 Nasal Cannula 2 06/08/16 17:43 98.1 82 14 121/69 99 Nasal Cannula 2 Labs: Laboratory Tests Test 06/09/16 11:01 White Blood Count 9.6 TH/MM3 (4.0-11.0) Red Blood Count 4.10 MIL/MM3 (4.50-5.90) Hemoglobin 12.6 GM/DL (13.0-17.0) Hematocrit 37.7 % (39.0-51.0) Mean Corpuscular Volume 91.9 FL (80.0-100.0) Mean Corpuscular Hemoglobin 30.6 PG (27.0-34.0) Mean Corpuscular Hemoglobin 33.3 % Concent (32.0-36.0) Red Cell Distribution Width 14.5 % (11.6-17.2) Platelet Count 216 TH/MM3 (150-450) Mean Platelet Volume 8.5 FL (7.0-11.0) Neutrophils (%) (Auto) 78.7 % (16.0-70.0) Lymphocytes (%) (Auto) 13.2 % (9.0-44.0) Monocytes (%) (Auto) 6.1 % (0.0-8.0) Eosinophils (%) (Auto) 1.7 % (0.0-4.0) Basophils (%) (Auto) 0.3 % (0.0-2.0) Neutrophils # (Auto) 7.6 TH/MM3 (1.8-7.7) Lymphocytes # (Auto) 1.3 TH/MM3 (1.0-4.8) Monocytes # (Auto) 0.6 TH/MM3 (0-0.9) Eosinophils # (Auto) 0.2 TH/MM3 (0-0.4) Basophils # (Auto) 0.0 TH/MM3 (0-0.2) CBC Comment DIFF FINAL Differential Comment Sodium Level 151 MEQ/L (136-145) Potassium Level 3.1 MEQ/L (3.5-5.1) Chloride Level 112 MEQ/L (98-107) Carbon Dioxide Level 30.7 MEQ/L (21.0-32.0) Anion Gap 8 MEQ/L (5-15) Blood Urea Nitrogen 20 MG/DL (7-18) Creatinine 0.88 MG/DL (0.60-1.30) Estimat Glomerular Filtration 102 ML/MIN Rate (>89) Random Glucose 67 MG/DL (74-106) Calcium Level 8.5 MG/DL (8.5-10.1) Result Diagram: 06/09/16 1101 06/09/16 1101 Sherin Altamirano MD Jun 09, 2016 16:58
[2016-06-09 20:00] VITALS: BP 134/77; PULSE 55; RESP 18; TEMP 97.6; O2SAT 94
--- NOTE | 2016-06-09 20:17 | HHI.GIFU ---
Subjective Remarks Feeling more comfortable in bed no pain nausea or vomiting Objective Vitals I&O Vital Signs Date Time Temp Pulse Resp B/P Pulse Ox O2 Delivery O2 Flow Rate FiO2 06/09/16 16:00 96.9 60 16 115/70 94 06/09/16 12:00 96.9 60 15 95 06/09/16 12:00 96.9 60 15 133/70 95 06/09/16 08:00 96.9 54 17 135/64 94 06/09/16 00:00 97.3 53 18 120/67 100 I/O 06/08/16 06/08/16 06/08/16 06/09/16 06/09/16 06/09/16 07:00 15:00 23:00 07:00 15:00 23:00 Intake Total 681 ml 1281 ml 298 ml Output Total 475 ml 600 ml 300 ml Balance 206 ml 681 ml -2 ml Intake Oral 0 ml 0 ml 0 ml IV Total 481 ml 1281 ml 298 ml Other 200 ml Output Urine Total 475 ml 600 ml 300 ml Estimated Blood Loss 0 ml Other 0 ml # Bowel Movements 1 5 Laboratory Laboratory Tests Test 06/09/16 11:01 White Blood Count 9.6 Red Blood Count 4.10 Hemoglobin 12.6 Hematocrit 37.7 Mean Corpuscular Volume 91.9 Mean Corpuscular Hemoglobin 30.6 Mean Corpuscular Hemoglobin 33.3 Concent Red Cell Distribution Width 14.5 Platelet Count 216 Mean Platelet Volume 8.5 Neutrophils (%) (Auto) 78.7 Lymphocytes (%) (Auto) 13.2 Monocytes (%) (Auto) 6.1 Eosinophils (%) (Auto) 1.7 Basophils (%) (Auto) 0.3 Neutrophils # (Auto) 7.6 Lymphocytes # (Auto) 1.3 Monocytes # (Auto) 0.6 Eosinophils # (Auto) 0.2 Basophils # (Auto) 0.0 CBC Comment DIFF FINAL Differential Comment Sodium Level 151 Potassium Level 3.1 Chloride Level 112 Carbon Dioxide Level 30.7 Anion Gap 8 Blood Urea Nitrogen 20 Creatinine 0.88 Estimat Glomerular Filtration 102 Rate Random Glucose 67 Calcium Level 8.5 Date/Time Procedure Status Source Growth 06/08/16 13:12 Urine Culture - Preliminary Resulted Urine Clean Catch Gram Negative Gt Imaging Last Impressions Abdomen X-Ray 06/09/16 0600 Signed Impressions: Service Date/Time: Thursday, June 09, 2016 05:56 - CONCLUSION: 1. Comparison with the prior study there is decreasing colonic distention. Followup examination is recommended if clinically indicated. Eb Vargas MD Chest X-Ray 06/08/16 1206 Signed Impressions: Service Date/Time: Wednesday, June 08, 2016 12:18 - CONCLUSION: Abnormal abdomen appearance. 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 No evidence of perforation. The referring physicians will be contacted concerning this abnormality. Kiera Nicolas MD Physical Exam CHEST: Chest is clear to auscultation and percussion. CARDIAC: Regular rate and rhythm with no murmur gallop or rubs. ABDOMEN: Soft, nondistended, nontender; no hepatosplenomegaly; bowel sounds are present in all four quadrants. EXTREMITIES: No clubbing, cyanosis, or edema. SKIN: Normal; no rash; no jaundice. CREDIT CARD ASSOCIATE: No focal deficits; alert and oriented times three. Assessment and Plan Plan ASSESSMENT: - Bowel obstruction secondary to sigmoid volvulus. Pt is poor historian, states he has been constipated and has not had a real good bowel movement in 3-4 weeks, had some liquid stool three days ago. Presents to ER with worsening abdominal distention. No n/v No pain. Pt with severe tympanic abdominal distention. Abdomen/Pelvis CT ()-----> Large bowel obstruction caused by a sigmoid volvulus. No evidence of perforation. The referring physicians will be contacted concerning this abnormality. GS following. NPO. Will plan for emergent flexible sigmoidoscopy today. - Leukocytosis. WBC 14.7. - Hypokalemia. - Abnormal weight loss. Pt last colonoscopy many years ago per patient. 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 PLAN: - Plan for colonoscopy on Saturday -Clear liquid diet - Supportive care - Further recommendations to follow based on results of above Demian Diane MD Jun 09, 2016 20:17
[2016-06-10] VITALS: BP 120/68; PULSE 66; RESP 18; TEMP 97.6; O2SAT 93
[2016-06-10] MEDS: NS + KCL 20 MEQ INJ 1,000 ML IV SCH ×2 (01:16→09:00)
[2016-06-10] MEDS: metroNIDAZOLE 500 MG INJ 100 ML IV SCH ×3 (04:18→20:21)
[2016-06-10 07:28] LABS: HEMATOCRIT 42.2 % (39.0-51.0); MEAN CELL VOLUME 92.9 FL (80.0-100.0); MEAN CORPUSCULAR HEMOGLOBIN 31.1 PG (27.0-34.0); MEAN CORPUSCULAR HGB CONC 33.5 % (32.0-36.0); PLATELET COUNT 270 TH/MM3 (150-450); RED BLOOD COUNT 4.54 MIL/MM3 (4.50-5.90); RED CELL DISTRIBUTION WIDTH 14.4 % (11.6-17.2); WHITE BLOOD COUNT 9.6 TH/MM3 (4.0-11.0)
[2016-06-10 07:30] LABS: ALKALINE PHOSPHATASE 62 U/L (45-117); ALT (GPT) 16 U/L (12-78); ANION GAP 8 MEQ/L (5-15); BICARBONATE 27.9 MEQ/L (21.0-32.0); BLOOD UREA NITROGEN 15 MG/DL (7-18); CHLORIDE 116 MEQ/L (98-107); GLOMERULAR FILTRATION RATE 96 ML/MIN (>89); HEMO FLAGS AUTO DIFF; SODIUM (NA) 152 MEQ/L (136-145); TOTAL BILIRUBIN ADULT 0.8 MG/DL (0.2-1.0)
[2016-06-10 07:31] LABS: AST (GOT) 34 U/L (15-37)
[2016-06-10 07:32] LABS: POTASSIUM 3.9 MEQ/L (3.5-5.1)
[2016-06-10 08:00] VITALS: BP 165/74; PULSE 70; RESP 16; TEMP 96.9; O2SAT 95
[2016-06-10] MEDS ORDERED: PEG (High)/E-LYTE SOLN 4000 ML BTL PO ONE (10:00)
--- NOTE | 2016-06-10 11:11 | HHI.PR ---
Subjective Remarks looks comfortable. no nausea/ vomiting. no fever. Objective Vitals Vital Signs Date Time Temp Pulse Resp B/P Pulse Ox O2 Delivery O2 Flow Rate FiO2 06/10/16 08:00 96.9 70 16 165/74 95 06/10/16 00:00 97.6 66 18 120/68 93 06/09/16 20:00 97.6 55 18 134/77 94 06/09/16 16:00 96.9 60 16 115/70 94 06/09/16 12:00 96.9 60 15 95 06/09/16 12:00 96.9 60 15 133/70 95 I/O 06/09/16 06/09/16 06/09/16 06/10/16 06/10/16 06/10/16 07:00 15:00 23:00 07:00 15:00 23:00 Intake Total 1281 ml 298 ml 809 ml 1419 ml 480 ml Output Total 600 ml 300 ml 500 ml 550 ml Balance 681 ml -2 ml 309 ml 869 ml 480 ml Intake Oral 0 ml 0 ml 0 ml 120 ml 480 ml IV Total 1281 ml 298 ml 809 ml 1299 ml Output Urine Total 600 ml 300 ml 500 ml 550 ml # Bowel Movements 1 5 1 Result Diagram: 06/10/16 0613 06/10/16 0613 Imaging Last Impressions Abdomen X-Ray 06/09/16 0600 Signed Impressions: Service Date/Time: Thursday, June 09, 2016 05:56 - CONCLUSION: 1. Comparison with the prior study there is decreasing colonic distention. Followup examination is recommended if clinically indicated. Eb Vargas MD Chest X-Ray 06/08/16 1206 Signed Impressions: Service Date/Time: Wednesday, June 08, 2016 12:18 - CONCLUSION: Abnormal abdomen appearance. 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 No evidence of perforation. The referring physicians will be contacted concerning this abnormality. Kiera Nicolas MD Objective Remarks GENERAL: in no apparent distress. CARDIOVASCULAR: Regular rate and regular rhythm without murmurs, gallops, or rubs. RESPIRATORY: Clear to auscultation. Breath sounds equal bilaterally. No wheezes , rales, or rhonchi. GASTROINTESTINAL: Abdomen soft, non-tender, distention has much improved. MUSCULOSKELETAL: Extremities without clubbing, cyanosis, or edema. NEURO: awake and alert Procedures colonoscopy Medications and IVs Current Medications Ondansetron HCl 4 mg 4 mg ONCE ONCE IVP Last administered on 06/08/16 12:29; Start 06/08/16 at 12:15; Stop 06/08/16 at 12:16; Status DC Sodium Chloride (NS 1000 ml Inj) 1,000 ml @ 1,000 mls/hr Q1H IV Last administered on 06/08/16 12:29; Start 06/08/16 at 12:06; Stop 06/08/16 at 13:05 ; Status DC IV Flush (NS Flush) 2 ml UNSCH PRN IVF FLUSH AFTER USING IV ACCESS; Start 06/08 at 12:15 Diatrizoate Meglum/ Diatrizoate Sod ( Gastroview Liq) 18 ml STK-MED ONCE .ROUTE Last administered on 06/08/16 12:29; Start 06/08/16 at 12:24; Stop at 12:25; Status DC Iohexol 98 ml 98 ml STK-MED ONCE IV Last administered on 06/08/16 14:11; Start 06/08/16 at 14:11; Stop 06/08/16 at 14:12; Status DC Ceftriaxone Sodium/Sodium Chloride (Rocephin Inj/NS Inj) 100 ml @ 200 mls/hr ONCE ONCE IV Last administered on 06/08/16 16:34; Start 06/08/16 at 15:45; Stop 06/08/16 at 16:14; Status DC Ondansetron HCl 4 mg 4 mg Q8HR PRN IV PUSH NAUSEA; Start 06/08/16 at 16:15 Ceftriaxone Sodium 1000 mg/ Sodium Chloride 100 ml @ 200 mls/hr Q24H IV Last administered on 06/08/16 18:03; Start 06/09/16 at 16:00 Potassium Chloride/Sodium Chloride 1,000 ml @ 150 mls/hr Q6H40M IV Last administered on 06/10/16 09:00; Start 06/08/16 at 16:30 Potassium Chloride 100 ml @ 50 mls/hr Q2H IV Last administered on 06/08/16 16 :35; Start 06/08/16 at 16:30; Stop 06/08/16 at 20:29; Status DC Sodium Chloride (NS 1000 ml Inj) 1,000 ml @ 999 mls/hr BOLUS ONCE IV ; Start 06/08/16 at 17:00; Stop 06/08/16 at 18:00; Status DC Ketamine HCl (Ketalar Inj) 500 mg STK-MED ONCE .ROUTE ; Start 06/08/16 at 17:13 ; Stop 06/08/16 at 17:14; Status DC Midazolam HCl 2 mg 2 mg STK-MED ONCE .ROUTE ; Start 06/08/16 at 17:50; Stop at 17:51; Status DC Metronidazole 100 ml @ 100 mls/hr Q8H IV Last administered on 06/10/16 04:18 ; Start 06/09/16 at 12:00 Potassium Chloride (KCl 20 Meq Premix Inj) 100 ml @ 50 mls/hr BOLUS ONCE IV Last administered on 06/09/16 14:43; Start 06/09/16 at 13:15; Stop 06/09/16 at 15:14; Status DC Polyethylene Glycol/ Electrolytes (Colyte Liq) 4,000 ml ONCE ONCE PO ; Start at 10:00; Stop 06/10/16 at 10:19; Status DC A/P Assessment and Plan A/P Bowel obstruction with Sigmoid volvulus s/p colonoscopy -( on 06/08) with ischemic colitis continue IV fluid continue IV Abx and pain control plan for repeated colonoscopy tomorrow GI and surgery following. Hypokalemia at presentation replaced- will monitor hypernatremia; will continue IV fluid - BMP in am UTI with e-coli- patient has been on Cipro at home has failed outpatient treatment continue Rocephin Pulmonary embolism and DVT history Xarelto on hold at this time for planned procedures - will resume when ok with GI and surgery Hypertension continue to monitor patient DVT prophylaxis with SCD's Anuj Mcguire MD Jun 10, 2016 11:11
[2016-06-10 11:25] LABS: BANDS 2 % (0-6); NEUTROPHIL # MANUAL DIFF 7.6 TH/MM3 (1.8-7.7); POLYS (SEG NEUTROPHILS) 77 % (16-70); WBC DIFF SAMPLE 100
[2016-06-10 11:26] LABS: ACANTHOCYTES 1+ (NORMAL); BURR CELLS 1+ (NORMAL); PLATELET ESTIMATE SMEAR NORMAL (NORMAL); PLATELET MORPHOLOGY NORMAL (NORMAL); SCAN/DIFF FINAL DIFF MANUAL; TARGET CELLS 1+ (NORMAL)
--- NOTE | 2016-06-10 11:29 | PD.CAR.PN ---
CVT Progress Note Subjective/Hospital Course: 80-year-old malnourished gentleman underwent yesterday successful detorsion of the sigmoid colon for volvulus. Abdomen is now soft with few bowel sounds and completely decompressed I've discussed this with Dr. 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 Will tailor therapy based on patient's progress 06/10/16 Abdomen soft and active bowel sounds Patient will undergo full colonoscopy tomorrow and based on that will decide what needs to be done further Some of these patients are found to have a neoplastic lesion accounting for their volvulus but the majority of patient's simply have volvulus due to bedridden state and a CTA patient and other related factors including systemic functional decline After colonoscopy tomorrow we'll discuss this with the patient and family extensively Objective: Vital Signs Date Time Temp Pulse Resp B/P Pulse Ox O2 Delivery O2 Flow Rate FiO2 06/10/16 08:00 96.9 70 16 165/74 95 06/10/16 00:00 97.6 66 18 120/68 93 06/09/16 20:00 97.6 55 18 134/77 94 06/09/16 16:00 96.9 60 16 115/70 94 06/09/16 12:00 96.9 60 15 95 06/09/16 12:00 96.9 60 15 133/70 95 Labs: Laboratory Tests Test 06/10/16 06:13 White Blood Count 9.6 TH/MM3 (4.0-11.0) Red Blood Count 4.54 MIL/MM3 (4.50-5.90) Hemoglobin 14.1 GM/DL (13.0-17.0) Hematocrit 42.2 % (39.0-51.0) Mean Corpuscular Volume 92.9 FL (80.0-100.0) Mean Corpuscular Hemoglobin 31.1 PG (27.0-34.0) Mean Corpuscular Hemoglobin 33.5 % Concent (32.0-36.0) Red Cell Distribution Width 14.4 % (11.6-17.2) Platelet Count 270 TH/MM3 (150-450) Mean Platelet Volume 9.4 FL (7.0-11.0) Neutrophils (%) (Auto) % (16.0-70.0) Lymphocytes (%) (Auto) % (9.0-44.0) Monocytes (%) (Auto) % (0.0-8.0) Eosinophils (%) (Auto) % (0.0-4.0) Basophils (%) (Auto) % (0.0-2.0) Neutrophils # (Auto) TH/MM3 (1.8-7.7) Lymphocytes # (Auto) TH/MM3 (1.0-4.8) Monocytes # (Auto) TH/MM3 (0-0.9) Eosinophils # (Auto) TH/MM3 (0-0.4) Basophils # (Auto) TH/MM3 (0-0.2) CBC Comment AUTO DIFF Differential Total Cells 100 Counted Neutrophils % (Manual) 77 % (16-70) Band Neutrophils % 2 % (0-6) Lymphocytes % 15 % (9-44) Monocytes % 6 % (0-8) Neutrophils # (Manual) 7.6 TH/MM3 (1.8-7.7) Differential Comment FINAL DIFF MANUAL Platelet Estimate NORMAL (NORMAL) Platelet Morphology Comment NORMAL (NORMAL) Target Cells 1+ (NORMAL) [place] Cells 1+ (NORMAL) Acanthocytes 1+ (NORMAL) Sodium Level 152 MEQ/L (136-145) Potassium Level 3.9 MEQ/L (3.5-5.1) Chloride Level 116 MEQ/L (98-107) Carbon Dioxide Level 27.9 MEQ/L (21.0-32.0) Anion Gap 8 MEQ/L (5-15) Blood Urea Nitrogen 15 MG/DL (7-18) Creatinine 0.92 MG/DL (0.60-1.30) Estimat Glomerular Filtration 96 ML/MIN (>89) Rate Random Glucose 85 MG/DL (74-106) Calcium Level 8.8 MG/DL (8.5-10.1) Total Bilirubin 0.8 MG/DL (0.2-1.0) Aspartate Amino Transf 34 U/L (15-37) (AST/SGOT) Alanine Aminotransferase 16 U/L (12-78) (ALT/SGPT) Alkaline Phosphatase 62 U/L (45-117) Total Protein 6.9 GM/DL (6.4-8.2) Albumin 2.5 GM/DL (3.4-5.0) Result Diagram: 06/10/16 0613 06/10/16 0613 Sherin Altamirano MD Jun 10, 2016 11:29
[2016-06-10] MEDS: 1/2 NS + KCL 20 MEQ INJ 1,000 ML IV SCH ×2 (11:40→18:04)
[2016-06-10 11:53] VITALS: BP 149/75; PULSE 72; RESP 17; TEMP 98; O2SAT 95
[2016-06-10 12:26] LABS: BICARBONATE 28.4 MEQ/L (21.0-32.0)
[2016-06-10 12:31] LABS: POTASSIUM 2.7 MEQ/L (3.5-5.1)
[2016-06-10] MEDS: POTASSIUM CHLOR 20 MEQ PREMIX 100 ML IV SCH ×2 (12:50→14:49)
[2016-06-10 13:25] LABS: MAGNESIUM 2.1 MG/DL (1.5-2.5)
[2016-06-10] MEDS: cefTRIAXone INJ 1,000 MG in SODIUM CHLORIDE 0.9% INJ 100 ML IV SCH (14:49)
[2016-06-10 16:00] VITALS: BP 136/76; PULSE 90; RESP 17; TEMP 97.4; O2SAT 95
[2016-06-10 20:00] VITALS: BP 156/91; PULSE 85; RESP 18; TEMP 95.7; O2SAT 93
--- NOTE | 2016-06-10 22:14 | HHI.GIFU ---
Subjective Remarks Comfortable in bed no new complaints Objective Vitals I&O Vital Signs Date Time Temp Pulse Resp B/P Pulse Ox O2 Delivery O2 Flow Rate FiO2 06/10/16 16:00 97.4 90 17 136/76 95 06/10/16 11:53 98.0 72 17 149/75 95 06/10/16 08:00 96.9 70 16 165/74 95 06/10/16 00:00 97.6 66 18 120/68 93 I/O 06/09/16 06/09/16 06/09/16 06/10/16 06/10/16 06/10/16 07:00 15:00 23:00 07:00 15:00 23:00 Intake Total 1281 ml 298 ml 809 ml 1419 ml 2629 ml Output Total 600 ml 300 ml 500 ml 550 ml 1500 ml Balance 681 ml -2 ml 309 ml 869 ml 1129 ml Intake Oral 0 ml 0 ml 0 ml 120 ml 1440 ml IV Total 1281 ml 298 ml 809 ml 1299 ml 1189 ml Output Urine Total 600 ml 300 ml 500 ml 550 ml 900 ml Stool Total 600 ml # Bowel Movements 1 5 1 Laboratory Laboratory Tests Test 06/10/16 06/10/16 06:13 11:50 White Blood Count 9.6 Red Blood Count 4.54 Hemoglobin 14.1 Hematocrit 42.2 Mean Corpuscular Volume 92.9 Mean Corpuscular Hemoglobin 31.1 Mean Corpuscular Hemoglobin 33.5 Concent Red Cell Distribution Width 14.4 Platelet Count 270 Mean Platelet Volume 9.4 Neutrophils (%) (Auto) Lymphocytes (%) (Auto) Monocytes (%) (Auto) Eosinophils (%) (Auto) Basophils (%) (Auto) Neutrophils # (Auto) Lymphocytes # (Auto) Monocytes # (Auto) Eosinophils # (Auto) Basophils # (Auto) CBC Comment AUTO DIFF Differential Total Cells 100 Counted Neutrophils % (Manual) 77 Band Neutrophils % 2 Lymphocytes % 15 Monocytes % 6 Neutrophils # (Manual) 7.6 Differential Comment FINAL DIFF MANUAL Platelet Estimate NORMAL Platelet Morphology Comment NORMAL Target Cells 1+ [place] Cells 1+ Acanthocytes 1+ Sodium Level 152 152 Potassium Level 3.9 2.7 Chloride Level 116 114 Carbon Dioxide Level 27.9 28.4 Anion Gap 8 10 Blood Urea Nitrogen 15 14 Creatinine 0.92 0.90 Estimat Glomerular Filtration 96 99 Rate Random Glucose 85 99 Calcium Level 8.8 8.6 Total Bilirubin 0.8 Aspartate Amino Transf 34 (AST/SGOT) Alanine Aminotransferase 16 (ALT/SGPT) Alkaline Phosphatase 62 Total Protein 6.9 Albumin 2.5 Magnesium Level 2.1 Date/Time Procedure Status Source Growth 06/08/16 13:12 Urine Culture - Final Complete Urine Clean Catch Escherichia Coli Imaging Last 48 hours Impressions Abdomen X-Ray 06/09/16 0600 Signed Impressions: Service Date/Time: Thursday, June 09, 2016 05:56 - CONCLUSION: 1. Comparison with the prior study there is decreasing colonic distention. Followup examination is recommended if clinically indicated. Eb Vargas MD Physical Exam CHEST: Chest is clear to auscultation and percussion. CARDIAC: Regular rate and rhythm with no murmur gallop or rubs. ABDOMEN: Soft, nondistended, nontender; no hepatosplenomegaly; bowel sounds are present in all four quadrants. EXTREMITIES: No clubbing, cyanosis, or edema. SKIN: Normal; no rash; no jaundice. LEAFLET DISTRIBUTOR: No focal deficits; alert and oriented times three. Assessment and Plan Plan ASSESSMENT: - Bowel obstruction secondary to sigmoid volvulus. Pt is poor historian, states he has been constipated and has not had a real good bowel movement in 3-4 weeks, had some liquid stool three days ago. Presents to ER with worsening abdominal distention. No n/v No pain. Pt with severe tympanic abdominal distention. Abdomen/Pelvis CT ()-----> Large bowel obstruction caused by a sigmoid volvulus. No evidence of perforation. The referring physicians will be contacted concerning this abnormality. GS following. NPO. Will plan for emergent flexible sigmoidoscopy today. - Leukocytosis. WBC 14.7. - Hypokalemia. - Abnormal weight loss. Pt last colonoscopy many years ago per patient. 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 PLAN: - Plan for colonoscopy tomorrow -Clear liquid diet - Supportive care - Further recommendations to follow based on results of above Demian Diane MD Jun 10, 2016 22:13
[2016-06-10] MEDS ORDERED: MAGNESIUM CITRATE SOLN 300 ML BTL PO ONE (23:15)
[2016-06-11] VITALS (7 sets, daily range): BP systolic 130–157; BP diastolic 72–88; PULSE 68–92; RESP 17–18; TEMP 95.8–97.2; O2SAT 93–95
[2016-06-11] MEDS: LACTATED RINGER'S 1000 ML IV SCH (04:15)
[2016-06-11] MEDS: metroNIDAZOLE 500 MG INJ 100 ML IV SCH ×3 (04:54→20:45)
[2016-06-11] MEDS: 1/2 NS + KCL 20 MEQ INJ 1,000 ML IV SCH ×3 (04:55→20:45)
[2016-06-11 05:14] LABS: HEMATOCRIT 39.5 % (39.0-51.0); MEAN CELL VOLUME 91.3 FL (80.0-100.0); MEAN CORPUSCULAR HEMOGLOBIN 30.6 PG (27.0-34.0); MEAN CORPUSCULAR HGB CONC 33.5 % (32.0-36.0); PLATELET COUNT 267 TH/MM3 (150-450); RED BLOOD COUNT 4.33 MIL/MM3 (4.50-5.90); RED CELL DISTRIBUTION WIDTH 14.2 % (11.6-17.2); REVIEW FLAG FINAL; WHITE BLOOD COUNT 9.8 TH/MM3 (4.0-11.0)
[2016-06-11 05:43] LABS: BICARBONATE 25.8 MEQ/L (21.0-32.0)
[2016-06-11 05:46] LABS: POTASSIUM 2.6 MEQ/L (3.5-5.1)
[2016-06-11] MEDS ORDERED: POTASSIUM CL 40 MEQ/30 ML LIQ UDC PO ONE (06:00)
[2016-06-11] MEDS: POTASSIUM CHLOR 20 MEQ PREMIX 100 ML IV SCH ×3 (06:05→11:31)
--- NOTE | 2016-06-11 08:22 | HHI.PR ---
Subjective Remarks in no acute distress. denies pain, nausea or vomiting. Objective Vitals Vital Signs Date Time Temp Pulse Resp B/P Pulse Ox O2 Delivery O2 Flow Rate FiO2 06/11/16 07:53 Nasal Cannula 3.00 06/11/16 00:00 96.8 77 18 130/85 95 06/10/16 20:00 95.7 85 18 156/91 93 06/10/16 16:00 97.4 90 17 136/76 95 06/10/16 11:53 98.0 72 17 149/75 95 I/O 06/10/16 06/10/16 06/10/16 06/11/16 06/11/16 06/11/16 07:00 15:00 23:00 07:00 15:00 23:00 Intake Total 1419 ml 2629 ml 1074 ml 0 ml 996 ml Output Total 550 ml 1500 ml 500 ml 300 ml 200 ml Balance 869 ml 1129 ml 574 ml -300 ml 796 ml Intake Oral 120 ml 1440 ml 240 ml 0 ml IV Total 1299 ml 1189 ml 834 ml 996 ml Output Urine Total 550 ml 900 ml 500 ml 300 ml 200 ml Stool Total 600 ml Result Diagram: 06/11/16 0420 06/11/16 0420 Imaging Last Impressions Abdomen X-Ray 06/09/16 0600 Signed Impressions: Service Date/Time: Thursday, June 09, 2016 05:56 - CONCLUSION: 1. Comparison with the prior study there is decreasing colonic distention. Followup examination is recommended if clinically indicated. Eb Vargas MD Chest X-Ray 06/08/16 1206 Signed Impressions: Service Date/Time: Wednesday, June 08, 2016 12:18 - CONCLUSION: Abnormal abdomen appearance. 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 No evidence of perforation. The referring physicians will be contacted concerning this abnormality. Kiera Nicolas MD Objective Remarks GENERAL: in no apparent distress. CARDIOVASCULAR: Regular rate and regular rhythm without murmurs, gallops, or rubs. RESPIRATORY: Clear to auscultation. Breath sounds equal bilaterally. No wheezes , rales, or rhonchi. GASTROINTESTINAL: Abdomen soft, non-tender, distention has improved. MUSCULOSKELETAL: Extremities without clubbing, cyanosis, or edema. NEURO: awake and alert Procedures colonoscopy Medications and IVs Current Medications Ondansetron HCl 4 mg 4 mg ONCE ONCE IVP Last administered on 06/08/16 12:29; Start 06/08/16 at 12:15; Stop 06/08/16 at 12:16; Status DC Sodium Chloride (NS 1000 ml Inj) 1,000 ml @ 1,000 mls/hr Q1H IV Last administered on 06/08/16 12:29; Start 06/08/16 at 12:06; Stop 06/08/16 at 13:05 ; Status DC IV Flush (NS Flush) 2 ml UNSCH PRN IVF FLUSH AFTER USING IV ACCESS; Start 06/08 at 12:15 Diatrizoate Meglum/ Diatrizoate Sod ( Gastroview Liq) 18 ml STK-MED ONCE .ROUTE Last administered on 06/08/16 12:29; Start 06/08/16 at 12:24; Stop at 12:25; Status DC Iohexol 98 ml 98 ml STK-MED ONCE IV Last administered on 06/08/16 14:11; Start 06/08/16 at 14:11; Stop 06/08/16 at 14:12; Status DC Ceftriaxone Sodium/Sodium Chloride (Rocephin Inj/NS Inj) 100 ml @ 200 mls/hr ONCE ONCE IV Last administered on 06/08/16 16:34; Start 06/08/16 at 15:45; Stop 06/08/16 at 16:14; Status DC Ondansetron HCl 4 mg 4 mg Q8HR PRN IV PUSH NAUSEA Last administered on 18:40; Start 06/08/16 at 16:15 Ceftriaxone Sodium 1000 mg/ Sodium Chloride 100 ml @ 200 mls/hr Q24H IV Last administered on 06/10/16 14:49; Start 06/09/16 at 16:00 Potassium Chloride/Sodium Chloride 1,000 ml @ 150 mls/hr Q6H40M IV Last administered on 06/10/16 09:00; Start 06/08/16 at 16:30; Stop 06/10/16 at 11:12 ; Status DC Potassium Chloride 100 ml @ 50 mls/hr Q2H IV Last administered on 06/08/16 16 :35; Start 06/08/16 at 16:30; Stop 06/08/16 at 20:29; Status DC Sodium Chloride (NS 1000 ml Inj) 1,000 ml @ 999 mls/hr BOLUS ONCE IV ; Start 06/08/16 at 17:00; Stop 06/08/16 at 18:00; Status DC Ketamine HCl (Ketalar Inj) 500 mg STK-MED ONCE .ROUTE ; Start 06/08/16 at 17:13 ; Stop 06/08/16 at 17:14; Status DC Midazolam HCl 2 mg 2 mg STK-MED ONCE .ROUTE ; Start 06/08/16 at 17:50; Stop at 17:51; Status DC Metronidazole 100 ml @ 100 mls/hr Q8H IV Last administered on 06/11/16 04:54 ; Start 06/09/16 at 12:00 Potassium Chloride (KCl 20 Meq Premix Inj) 100 ml @ 50 mls/hr BOLUS ONCE IV Last administered on 06/09/16 14:43; Start 06/09/16 at 13:15; Stop 06/09/16 at 15:14; Status DC Polyethylene Glycol/ Electrolytes 4000 ml 4,000 ml ONCE ONCE PO Last administered on 06/10/16 11:36; Start 06/10/16 at 10:00; Stop 06/10/16 at 10:19 ; Status DC Potassium Chloride/Sodium Chloride 1,000 ml @ 125 mls/hr Q8H IV Last administered on 06/11/16 04:55; Start 06/10/16 at 11:15 Potassium Chloride (KCl 20 Meq Premix Inj) 100 ml @ 50 mls/hr Q2H IV Last administered on 06/10/16 14:49; Start 06/10/16 at 13:00; Stop 06/10/16 at 16:59 ; Status DC Magnesium Citrate 300 ml 300 ml NOW ONCE PO Last administered on 06/10/16 23: 31; Start 06/10/16 at 23:15; Stop 06/10/16 at 23:16; Status DC Lactated Ringer's 1,000 ml @ 30 mls/hr Q24H IV ; Start 06/11/16 at 04:15 Potassium Chloride (KCl 20 Meq Premix Inj) 100 ml @ 50 mls/hr Q2H IV Last administered on 06/11/16 06:05; Start 06/11/16 at 06:00; Stop 06/11/16 at 11:59 Potassium Chloride (KCl 40 Meq/30 ml Liq) 40 meq ONCE ONCE PO Last administered on 06/11/16 06:04; Start 06/11/16 at 06:00; Stop 06/11/16 at 06:01 ; Status DC A/P Assessment and Plan A/P Bowel obstruction with Sigmoid volvulus s/p colonoscopy -( on 06/08) with ischemic colitis continue IV fluid continue IV Abx and pain control plan for repeated colonoscopy today GI and surgery following. Hypokalemia ; will replace and monitor hypernatremia; continue IV fluid and monitor- BMP in am. UTI with e-coli- patient has been on Cipro at home has failed outpatient treatment continue Rocephin Pulmonary embolism and DVT history Xarelto on hold at this time for planned procedures - will resume when ok with GI and surgery Hypertension continue to monitor patient DVT prophylaxis with SCD's Anuj Mcguire MD Jun 11, 2016 08:22
[2016-06-11] MEDS ORDERED: PROPOFOL 200 MG/20 ML AMP IV ONE ×2 (14:27)
[2016-06-11] MEDS: cefTRIAXone INJ 1,000 MG in SODIUM CHLORIDE 0.9% INJ 100 ML IV SCH (15:21)
[2016-06-12] VITALS: BP 142/80; PULSE 66; RESP 18; TEMP 95.9; O2SAT 97
[2016-06-12] MEDS ORDERED: POTASSIUM CHLORIDE 10 MEQ CONTROLLED RELEASE TAB PO ONE (01:15)
[2016-06-12] MEDS: LACTATED RINGER'S 1000 ML IV SCH (04:15)
[2016-06-12 04:47] LABS: BICARBONATE 22.5 MEQ/L (21.0-32.0); POTASSIUM 3.2 MEQ/L (3.5-5.1)
[2016-06-12] MEDS: metroNIDAZOLE 500 MG INJ 100 ML IV SCH ×2 (05:22→11:11)
[2016-06-12] MEDS: 1/2 NS + KCL 20 MEQ INJ 1,000 ML IV SCH ×2 (05:22→11:12)
[2016-06-12 08:00] VITALS: BP 109/68; PULSE 77; RESP 17; TEMP 97.9; O2SAT 94
[2016-06-12] MEDS ORDERED: QUEtiapine FUMARATE 25 MG TAB PO SCH (09:00)
[2016-06-12] MEDS ORDERED: ALUMINUM/MAGNESIUM/SIMETH 30 ML CUP PO PRN (09:00)
[2016-06-12] MEDS ORDERED: DOCUSATE SODIUM 50 MG/SENNA 8.6 MG TAB PO SCH (09:00)
[2016-06-12] MEDS ORDERED: DOCUSATE SODIUM 100 MG CAP PO PRN (09:00)
[2016-06-12] MEDS ORDERED: ONDANSETRON HCL 4 MG/2 ML VIAL IV PRN (09:00)
[2016-06-12] MEDS ORDERED: CALCIUM CARBONATE 500 MG CHEWABLE TAB CHEW PRN (09:00)
[2016-06-12] MEDS ORDERED: ACETAMINOPHEN 325 MG TAB PO PRN (09:00)
[2016-06-12] MEDS ORDERED: MAGNESIUM HYDROXIDE SUSP 30 ML CUP PO PRN (09:00)
[2016-06-12] MEDS ORDERED: DOCUSATE SODIUM 50 MG/SENNA 8.6 MG TAB PO PRN (09:00)
[2016-06-12 11:47] VITALS: O2SAT 96
[2016-06-12 12:00] VITALS: BP 127/80; PULSE 67; RESP 18; TEMP 97.4; O2SAT 94
--- NOTE | 2016-06-12 14:07 | HHI.GIFU ---
Subjective Remarks Resting in bed. Tolerating diet, but not much of an appetite. No n/v. No abdominal pain. + BM. (Amie Flores) Objective Vitals I&O Vital Signs Date Time Temp Pulse Resp B/P Pulse Ox O2 Delivery O2 Flow Rate FiO2 06/12/16 12:00 97.4 67 18 127/80 94 06/12/16 11:47 96 Nasal Cannula 3.00 06/12/16 08:00 97.9 77 17 109/68 94 06/12/16 07:24 3.00 06/12/16 00:00 95.9 66 18 142/80 97 06/11/16 20:45 Nasal Cannula 3.00 06/11/16 20:00 95.9 92 18 154/88 93 06/11/16 18:17 94 Nasal Cannula 3.00 06/11/16 16:00 96.2 68 17 157/72 94 06/11/16 14:55 72 16 119/76 72 06/11/16 14:47 72 16 100 06/11/16 14:40 97.9 73 16 101/65 100 06/11/16 14:18 95.8 73 17 138/76 93 I/O 06/11/16 06/11/16 06/11/16 06/12/16 06/12/16 06/12/16 07:00 15:00 23:00 07:00 15:00 23:00 Intake Total 0 ml 2411 ml 648 ml 1007 ml 552 ml Output Total 300 ml 500 ml 225 ml 200 ml Balance -300 ml 1911 ml 423 ml 807 ml 552 ml Intake Oral 0 ml 0 ml 0 ml 0 ml IV Total 2311 ml 648 ml 1007 ml 552 ml Other 100 ml Output Urine Total 300 ml 500 ml 225 ml 200 ml # Bowel Movements 0 Laboratory Laboratory Tests Test 06/11/16 06/12/16 23:34 03:22 Potassium Level 2.9 3.2 Sodium Level 153 Chloride Level 122 Carbon Dioxide Level 22.5 Anion Gap 9 Blood Urea Nitrogen 11 Creatinine 0.87 Estimat Glomerular Filtration 103 Rate Random Glucose 84 Calcium Level 8.3 Magnesium Level 2.2 Date/Time Procedure Status Source Growth 06/08/16 13:12 Urine Culture - Final Complete Urine Clean Catch Escherichia Coli Imaging Last Impressions Abdomen X-Ray 06/09/16 0600 Signed Impressions: Service Date/Time: Thursday, June 09, 2016 05:56 - CONCLUSION: 1. Comparison with the prior study there is decreasing colonic distention. Followup examination is recommended if clinically indicated. Eb Vargas MD Chest X-Ray 06/08/16 1206 Signed Impressions: Service Date/Time: Wednesday, June 08, 2016 12:18 - CONCLUSION: Abnormal abdomen appearance. 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 No evidence of perforation. The referring physicians will be contacted concerning this abnormality. Kiera Nicolas MD Physical Exam CHEST: Chest is clear to auscultation and percussion. CARDIAC: RRR ABDOMEN: Soft, mildly distended, nontender; no hepatosplenomegaly; bowel sounds are present in all four quadrants. EXTREMITIES: BLE edema. SKIN: Normal; no rash; no jaundice. PORTFOLIO STRATEGIST: No focal deficits; Lethargic (Amie Flores ANIMAL STUNNER) Assessment and Plan Plan ASSESSMENT: - Bowel obstruction secondary to sigmoid volvulus. 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 No evidence of perforation. S/P (06/08/16)----> Abdominal distention from a sigmoid volvulus, ischemic colitis. KUB (06/09/16)---> Comparison with the prior study there is decreasing colonic distention. Followup examination is recommended if clinically indicated. Rpt. Colonoscopy (06/11/16)- --> 5x5 cm circumferential abnormal mucosa was found in the sigmoid colon. The mucosa was erythematous and had loss of vascularity and granularity, biopsy retroflexed views revealed medium internal hemorrhoids, revealed external hemorrhoids. Pathology pending. Clinically, abdomen much softer. No n/v/pain. Tolerating diet, although poor appetite, + BM. GS following- awaiting their recommendations - Leukocytosis. WBC 9.8 - Hypokalemia. - Abnormal weight loss. Pt last colonoscopy many years ago per patient. 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 PLAN: - Soft diet - Await pathology - Monitor labs - Monitor stool output - [facility] following, awaiting their recommendations - Supportive care - Further recommendations to follow based on results of above - Pt seen and examined by Dr. Wilkinson and myself and this note is written on his behalf (Amie Flores) Physician Comments Seen and examined with Ms. Sandra TALBOT, s/p colonoscopy with significant colitis and inflammation at the site of previous volvulous. No obvious malignancy, redundant colon. Advance diet as tolerated. Surgery on case. Gi will sign off, reconsult as needed. Thank you (Herbert Wilkinson MD) Amie Flores Jun 12, 2016 14:07 Herbert Wilkinson MD Jun 12, 2016 15:22
[2016-06-12] MEDS: cefTRIAXone INJ 1,000 MG in SODIUM CHLORIDE 0.9% INJ 100 ML IV SCH (15:03)
[2016-06-12 16:00] VITALS: BP 106/63; PULSE 69; RESP 17; TEMP 98; O2SAT 95
--- NOTE | 2016-06-12 17:18 | HHI.PR ---
Subjective Remarks Follow-up sigmoid volvulus. Discussed with RN, patient not eating well. When I walked into the patient, patient unresponsive with no spontaneous respiration. There is no palpable pulse. He was pronounced at 5:06 PM Objective Vitals Vital Signs Date Time Temp Pulse Resp B/P Pulse Ox O2 Delivery O2 Flow Rate FiO2 06/12/16 16:00 98.0 69 17 106/63 95 06/12/16 12:00 97.4 67 18 127/80 94 06/12/16 11:47 96 Nasal Cannula 3.00 06/12/16 08:00 97.9 77 17 109/68 94 06/12/16 07:24 3.00 06/12/16 00:00 95.9 66 18 142/80 97 06/11/16 20:45 Nasal Cannula 3.00 06/11/16 20:00 95.9 92 18 154/88 93 06/11/16 18:17 94 Nasal Cannula 3.00 I/O 06/11/16 06/11/16 06/11/16 06/12/16 06/12/16 06/12/16 07:00 15:00 23:00 07:00 15:00 23:00 Intake Total 0 ml 2411 ml 648 ml 1007 ml 552 ml 240 ml Output Total 300 ml 500 ml 225 ml 200 ml 600 ml Balance -300 ml 1911 ml 423 ml 807 ml 552 ml -360 ml Intake Oral 0 ml 0 ml 0 ml 0 ml 240 ml IV Total 2311 ml 648 ml 1007 ml 552 ml Other 100 ml Output Urine Total 300 ml 500 ml 225 ml 200 ml 600 ml # Bowel Movements 0 2 Result Diagram: 06/11/16 0420 06/12/16 0322 Objective Remarks Patient unresponsive with fixed pupils. No spontaneous respiration. No palpable pulses. No BP Procedures colonoscopy A/P Assessment and Plan Patient being treated for Bowel obstruction with Sigmoid volvulus, Hypokalemia, hypernatremia, UTI with e-coli with history of Pulmonary embolism and DVT and Hypertension Pronounced at 5:06 PM Morris Borrego MD Jun 12, 2016 17:18
--- NOTE | 2016-06-12 17:19 | DEATH SUM ---
Summary Demographics Date Pronounced : Jun 12, 2016 Time Of : 17:06 Preliminary Cause of : Cardiac arrest Morris Borrego MD Jun 12, 2016 17:19
--- NOTE | 2016-06-12 17:22 | HHI.DS ---
Summary Note Date of : Jun 12, 2016 Time Of : 17:06 Admission Date Jun 08, 2016 at 16:09 Admitting Diagnosis Sigmoid volvulus Diagnosis at Time of : Procedures colonoscopy Brief History This 80-year-old -[place]aced[place] male patient seen with his in the room patient and are poor historians information gathered from patient as well as and prior computer chart. 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 It appears that patient has been followed by [facility]. Patient and would like to maintain DNR status while in the hospital. Patient's reports that abdominal distention has been steadily increasing over the past 4 weeks. Patient's last formed bowel movement was 3-4 weeks ago last liquid bowel movement was 3 days ago. Patient has stopped eating because he feels full and is unable to get the food down. Patient denies nausea, vomiting or pain. Patient also denies shortness of breath chest pain. Patient is generally weak which has been his baseline. Patient is unable to walk and has a lateral foot drop. CBC/BMP: 06/11/16 0420 06/12/16 0322 Significant Findings Laboratory Tests Test 06/10/16 06/10/16 06/11/16 06/11/16 06:13 11:50 04:20 23:34 Neutrophils % (Manual) 77 % (16-70) Target Cells 1+ (NORMAL) Massimo Cells 1+ (NORMAL) Acanthocytes 1+ (NORMAL) Sodium Level 152 MEQ/L 152 MEQ/L 154 MEQ/L (136-145) (136-145) (136-145) Chloride Level 116 MEQ/L 114 MEQ/L 115 MEQ/L (98-107) (98-107) (98-107) Albumin 2.5 GM/DL (3.4-5.0) Potassium Level 2.7 MEQ/L 2.6 MEQ/L 2.9 MEQ/L (3.5-5.1) (3.5-5.1) (3.5-5.1) Red Blood Count 4.33 MIL/MM3 (4.50-5.90) Random Glucose 110 MG/DL (74-106) Test 06/12/16 03:22 Sodium Level 153 MEQ/L (136-145) Potassium Level 3.2 MEQ/L (3.5-5.1) Chloride Level 122 MEQ/L (98-107) Calcium Level 8.3 MG/DL (8.5-10.1) Hospital Course Patient was admitted for Bowel obstruction with Sigmoid volvulus. Underwent colonoscopy -( on 06/08) with ischemic colitis and received IV fluid, IV Abx and pain control. Also had Hypokalemia and hypernatremia both corrected. UTI with e -coli and given Rocephin. Patient with history of hypertension, pulmonary embolism and DVT. He and pronounced on 06/12/16 at 1706. He was a DO NOT RESUSCITATE Morris Borrego MD Jun 12, 2016 17:22
--- NOTE | 2016-06-13 20:30 | EKG ---
Date Performed: 06/12/2016 Time Performed: 17:19:43 PTAGE: 80 years EKG: NO FURTHER INTERPRETATION POSSIBLE ATYPICAL ECG WARNING: DATA QUALITY MAY AFFECT INTERPRETA TION PREVIOUS TRACING : 07/06/2015 11.21 DOCTOR: Bhargav Godwin Interpretating Date/Time 06/13/2016 20:29:50
== END 2016-06-12 17:06 | disposition expired | DRG 345 ==
LOC: NEPA 11:39 → NEDA 16:09 → N07B 18:27
PROVIDERS: ADMIT Internal Medicine; ATTEND Internal Medicine
PROC: 0D9M8ZZ Drainage of Descending Colon, Via Natural or Artificial Opening Endoscopic (ICD-10-PCS; principal; 2016-06-08 17:05)
PROC: 0DBN8ZX Excision of Sigmoid Colon, Via Natural or Artificial Opening Endoscopic, Diagnostic (ICD-10-PCS; 2016-06-11)
DX: K56.2 Volvulus (principal); E87.0 Hyperosmolality and hypernatremia; R64 Cachexia; E46 Unspecified protein-calorie malnutrition; K55.9 Vascular disorder of intestine, unspecified; Z68.1 Body mass index [BMI] 19.9 or less, adult; N39.0 Urinary tract infection, site not specified; J44.9 Chronic obstructive pulmonary disease, unspecified; I10 Essential (primary) hypertension; J45.909 Unspecified asthma, uncomplicated; H40.9 Unspecified glaucoma; R26.2 Difficulty in walking, not elsewhere classified; R33.9 Retention of urine, unspecified; I25.2 Old myocardial infarction; E87.6 Hypokalemia; B96.20 Unspecified Escherichia coli [E. coli] as the cause of diseases classified elsewhere; M21.379 Foot drop, unspecified foot; K64.4 Residual hemorrhoidal skin tags; K64.8 Other hemorrhoids; K52.9 Noninfective gastroenteritis and colitis, unspecified; Z51.5 Encounter for palliative care; Z66 Do not resuscitate; Z79.01 Long term (current) use of anticoagulants; Z86.711 Personal history of pulmonary embolism; Z86.718 Personal history of other venous thrombosis and embolism; Z88.2 Allergy status to sulfonamides; Z95.0 Presence of cardiac pacemaker
CPT/HCPCS: 71010; 74000; 74177; 80048; 80053; 81001; 83735; 84132; 85007; 85025; 85027; 85610; 85730; 87077; 87086; 87186; 88305; 93005; 96361; 96374; J0696; J2250; J2405; J3480; J7030; Q9963; Q9967